=== PATIENT | male | born 1945 | race Caucasian/White ===

== ENCOUNTER 2020-12-13 08:34 | Inpatient (IN) | payer OTHER, MEDICARE ==
[~2020-12-13] VITALS: Ht 190.5 cm; Wt 109.3 kg
--- NOTE | 2020-12-13 08:34 | NUR ---
PT BIB SELF C/O FEVER, LIGHT HEADEDNESS AND BLOOD IN THE STOOL STARTED 2 DAYS AFTER COVID VACCINE. PT IS AAOX4, NOT IN RESPIRATORY DISTRESS, HOOKED TO WOODEN FENCE ERECTOR, KEPT RESTED AND COMFORTABLE. WILL CONTINUE TO MONITOR.
--- NOTE | 2020-12-13 09:08 | NUR ---
SEEN AND EXAMINED BY .
--- NOTE | 2020-12-13 09:10 | NUR ---
PT REFUSED KENYON CATH INSERTION.
--- NOTE | 2020-12-13 09:20 | NUR ---
IV LINE ESTABLISHED BLOOD DRAWN AND SENT TO LAB.
--- NOTE | 2020-12-13 09:23 | NUR ---
OIL FIELD CASER AT BEDSIDE FOR XRAY.
[2020-12-13 09:28] LABS: BASOPHILS # (AUTO) 0.1 /CMM (0.0-0.2); BASOPHILS % (AUTO) 0.7 % (0.0-2.0); EOSINOPHILS % (AUTO) 0.5 % (0.0-6.0); HEMATOCRIT 42 % (39-51); HEMOGLOBIN 14.1 g/dL (13.5-17.5); LYMPHOCYTES # (AUTO) 1.1 /CMM (0.8-4.8); LYMPHOCYTES % (AUTO) 10.8 % (20.0-44.0); MEAN CORPUSCULAR HGB CONC 34 g/dl (31.0-36.0); MEAN CORPUSCULAR VOLUME 84 fL (80-96); MONOCYTES # (AUTO) 0.6 /CMM (0.1-1.30); MONOCYTES % (AUTO) 5.8 % (2.0-12.0); NEUTROPHILS # (AUTO) 8.1 /CMM (1.8-8.9); NEUTROPHILS % (AUTO) 82.2 % (43.0-81.0); PLATELET COUNT (AUTO) 264 /CMM (150-450); RED BLOOD CELL COUNT(AUTO) 4.94 MIL/uL (4.5-6.0); WHITE BLOOD COUNT (AUTO) 9.9 K/uL (4.3-11.0)
[2020-12-13] MEDS ORDERED: IV NS 0.9% 1,000 ML BAG IV ONE (09:30)
[2020-12-13] MEDS ORDERED: IV NS 0.9% 0 ML IV ONE (09:46)
[2020-12-13] MEDS ORDERED: IOHEXOL-350 100 ML VIAL IV ONE (09:46)
[2020-12-13 09:48] LABS: ALANINE AMINOTRANSFERASE 27 U/L (12-78); ALBUMIN 3.4 g/dL (3.4-5.0); ALKALINE PHOSPHATASE 74 U/L (46-116); ASPARTATE AMINOTRANSFERASE 7 U/L (15-37); BILIRUBIN,DIRECT 0.2 mg/dL (0.0-0.2); BILIRUBIN,TOTAL 0.5 mg/dL (0.2-1.0); CARBON DIOXIDE 13 mmol/L (21-32); CHLORIDE 99 mmol/L (98-107); GLUCOSE 110 mg/dL (74-106); LIPASE 2258 U/L (73-393); POTASSIUM 5.3 mmol/L (3.5-5.1); SODIUM SERUM 139 mmol/L (136-145); TOTAL PROTEIN, SERUM 7.4 g/dL (6.4-8.2)
[2020-12-13 09:49] LABS: CREATININE 26.7 mg/dL (0.6-1.3); UREA NITROGEN, BLOOD 206 mg/dL (7-18)
--- NOTE | 2020-12-13 09:49 | NUR ---
LAB CALLED CHRISTINA SINGH 26.7 INFORMED.
--- NOTE | 2020-12-13 10:03 | NUR ---
TOTAL OF 5000ML OF URINE OUTPUT.
[2020-12-13] MEDS ORDERED: LIDOCAINE 2% JEL UROJET 10 ML MM ONE ×2 (10:19→12:00)
[2020-12-13 10:39] LABS: BILIRUBIN,URINE Negative (NEGATIVE); COLOR,URINE YELLOW (YELLOW); LEUKOCYTE ESTERASE ,URINE Negative (NEGATIVE); NITRITE, URINE Negative (NEGATIVE); PH,URINE 5.5 (5.0-8.0); PROTEIN,URINE 100 mg/dl (NEGATIVE); UGLUCOSE Negative (NEGATIVE); UROBILINOGEN,URINE 0.2 EU/dL (0.2)
[2020-12-13 11:22] LABS: BACTERIA,URINE Few /HPF (None Seen); RBC,URINE 21-50 /HPF (0-2); SQUAMOUS EPITHELIAL CELL,UR Few /HPF (None Seen)
--- NOTE | 2020-12-13 12:14 | NUR ---
LAB CALLED PT COVID RESULT NEGATIVE (-)
--- NOTE | 2020-12-13 12:29 | NUR ---
[facility] CALLED DIGITAL LIBRARIAN PAGED.
--- NOTE | 2020-12-13 13:00 | NUR ---
URINE OUTPUT 3000ML.
--- NOTE | 2020-12-13 14:34 | NUR ---
REPORT GIVEN TO ROWAN WOLF FOR WHIT.
--- NOTE | 2020-12-13 14:45 | NUR ---
RN NOTE PT TRANSFERRED ONTO FLOOR. V/S STABLE. WILL CONTINUE TO MONITOR
[2020-12-13] MEDS ORDERED: Z GUARD REMEDY 2 OZ OINT TP PRN (15:00)
[2020-12-13] MEDS ORDERED: MAGNESIUM HYDROXIDE 30 ML UDC PO PRN (15:00)
[2020-12-13 16:00] VITALS: BP 144/89
[2020-12-13 16:12] LABS: PROSTATE SPECIFIC ANTIGEN SCR 31.45 ng/mL (0.00-4.00)
--- NOTE | 2020-12-13 19:00 | NUR ---
RN CLOSING NOTE PT AWAKE IN BED. A/O X3 AND FRENCH SPEAKING. NO COMPLAINT OF PAIN OR NAUSEA. ON RA WITH NO SOB OR RESPIRATORY DISTRESS PRESENT. ON IRONWORKER FOREMAN. NO EDEMA PRESENT. SELF AMBULATORY WITH BATHROOM PRIVILEGES. SKIN IS INTACT. IV PRESENT ON L AC 18G AND FLUSHES WELL. SAFETY MEASURES IN PLACE. SIDE RAILS RAISED.BED LOWERED. CALL LIGHT WITHIN REACH. WILL CONTINUE TO MONITOR.
[2020-12-13] MEDS: IV NS 0.9% 1,000 ML IV PRN (19:26)
--- NOTE | 2020-12-13 19:40 | NUR ---
RN NOTES Received patient awake on his bed, a/ox4, ambulatory, SR on PAC on tele monitor HR-83,F/C noticed hematuria on patient's urine, denies pain, no SOB, bed in locked position, call light within reach, siderailsupx2, will continue to monitor
[2020-12-13 20:00] VITALS: BP 159/88
[2020-12-14] VITALS: BP 151/76
[2020-12-14 00:08] VITALS: BP 154/76
[2020-12-14] MEDS: IV NS 0.9% 1,000 ML IV PRN ×3 (03:28→20:07)
[2020-12-14 04:00] VITALS: BP 141/89
[2020-12-14 06:11] LABS: BASOPHILS % (AUTO) 0.6 % (0.0-2.0); EOSINOPHILS % (AUTO) 1.6 % (0.0-6.0); HEMATOCRIT 41 % (39-51); HEMOGLOBIN 13.9 g/dL (13.5-17.5); LYMPHOCYTES # (AUTO) 0.9 /CMM (0.8-4.8); LYMPHOCYTES % (AUTO) 12.7 % (20.0-44.0); MEAN CORPUSCULAR HGB CONC 34 g/dl (31.0-36.0); MEAN CORPUSCULAR VOLUME 84 fL (80-96); MONOCYTES # (AUTO) 0.7 /CMM (0.1-1.30); MONOCYTES % (AUTO) 10.1 % (2.0-12.0); NEUTROPHILS # (AUTO) 5.5 /CMM (1.8-8.9); PLATELET COUNT (AUTO) 252 /CMM (150-450); RED BLOOD CELL COUNT(AUTO) 4.83 MIL/uL (4.5-6.0); WHITE BLOOD COUNT (AUTO) 7.3 K/uL (4.3-11.0)
--- NOTE | 2020-12-14 06:27 | NUR ---
RN NOTES Awake, denies pain, no SOB, morning care rendered, call light within reach, siderailsupx2, pt. needs attended
[2020-12-14 06:32] LABS: CALCIUM, SERUM 8.6 mg/dL (8.5-10.1); CARBON DIOXIDE 20 mmol/L (21-32); CHLORIDE 110 mmol/L (98-107); GLUCOSE 111 mg/dL (74-106); MAGNESIUM 2.5 mg/dL (1.8-2.4); PHOSPHORUS 7.1 mg/dL (2.5-4.9); POTASSIUM 4.2 mmol/L (3.5-5.1); SODIUM SERUM 146 mmol/L (136-145)
[2020-12-14 06:59] LABS: CHOLESTEROL 135 mg/dL (<200); HDL CHOLESTEROL 44 mg/dL (40-60); LDL 73 mg/dL (0-99); TRIGLYCERIDES 67 mg/dL (30-150)
--- NOTE | 2020-12-14 07:15 | NUR ---
CALL CENTER MANAGER OPENING NOTE RECEIVED PATIENT IN BED. A/O X4. ON ROOM AIR, TOLERATING WELL. NO SOB NOTED. IN NO APPARENT DISTRESS. TELE READING SHOWS SR WITH PAC. DENIES ANY PAIN OR DISCOMFORT AT THIS TIME. IV ACCESS AT L AC #18 G, INTACT AND PATENT, NS CURRENTLY RUNNING AT 125 ML/HR. KENYON CATHETER IN PLACE, DRAINING YELLOW URINE. SAFETY MEASURES MAINTAINED. BED IN LOWEST POSITION, BRAKE LOCKED. SIDE RAILS UP X2. CALL LIGHT WITHIN REACH. WILL CONTINUE PLAN OF CARE. Addendum: 12/14/20 at 0807 by KOBY BURNETTE RN KENYON CATHETER IN PLACE, WITH PRESENCE OF HEMATURIA
--- NOTE | 2020-12-14 07:22 | NUR ---
RN NOTE LAB CALLED AND SPOKE TO DUARTE FOR A CRITICAL VALUE BUN/CREA 137/11.9 STILL WAITING FOR DOCTOR'S LIST Addendum: 12/14/20 at 0855 by KOBY BURNETTE RN VALERIA ARCOS NP AT [id number]
[2020-12-14 07:34] LABS: CREATININE 11.9 mg/dL (0.6-1.3); UREA NITROGEN, BLOOD 137 mg/dL (7-18)
[2020-12-14 08:00] VITALS: BP 149/79
[2020-12-14] MEDS: ONDANSETRON HCL/PF 4 MG/2 ML VIAL IVP PRN (10:56)
[2020-12-14] MEDS: HYDROCODONE/APAP 5/325MG TABLET PO PRN ×2 (14:55→19:45)
[2020-12-14 16:00] VITALS: BP 163/102
[2020-12-14] MEDS: ACETAMINOPHEN 325 MG TABLET PO PRN (16:49)
--- NOTE | 2020-12-14 18:00 | NUR ---
BABBITTER CLOSING NOTE PATIENT RESTING IN BED. A/O X4. ON ROOM AIR, SATURATING WELL AT 97%. NO SOB NOTED. NO S/S OF RESPIRATORY DISTRESS. IV ACCESS AT R FA #22 G, INTACT AND PATENT, NS CURRENTLY RUNNING AT 125 ML/HR. KENYON CATHETER IN PLACE, DRAINING BLOODY URINE. PRN MEDS GIVEN ORDERED. ALL NEEDS HAVE BEEN MET AND ATTENDED. DVT PUMP ATTACHED TO BLE. SAFETY MEASURES MAINTAINED. BED IN LOWEST POSITION, BRAKE LOCKED. SIDE RAILS UP X2. CALL LIGHT WITHIN REACH. WILL ENDORSE CONTINUITY OF CARE TO ONCOMING SHIFT.
--- NOTE | 2020-12-14 19:00 | NUR ---
RN OPENING NOTE RECEIVED PT AWAKE AT BEDSIDE, A/OX4, JAPANESE SPEAKING. PT VERBALIZES NEEDS. PT ON RA. NO SOB NOTED, NO S/S OF RESPIRATORY DISTRESS. PT IS AMBULATORY WITH BRP. PT HAS NO COMPLAIN OF PAIN AT THIS TIME. IV ACCESS IN RAC #22, INFUSING NS @ 125ML/HR. IV IS INTACT, PATENT,AND FLUSHING WELL. SAFETY MEASURED MAINTAINED . BED IN LOWEST LOCKED POSITION, HOB ELEVATED, SIDE RAILS UP. CALL LIGHT AND TABLE WITHIN REACH . WILL CONTINUE WITH PLAN OF CARE
--- NOTE | 2020-12-14 19:48 | NUR ---
RN NOTES- Received patient awake on bed, a/ox4, ambulatory, complained of back pain- [place] 5/325 mg po given as ordered,V/S stable. Dr. Grant came and saw the patient, new order was in place, not in distress, call light within reach, siderailsupx2, will continue to monitor
[2020-12-14] MEDS: FINASTERIDE (5 MG) 5 MG TABLET PO SCH (20:00)
[2020-12-14 20:02] VITALS: BP 141/94
--- NOTE | 2020-12-14 20:30 | NUR ---
RN NOTES NOTICED BLOOD IN THE KENYON INFORMED DR. CUEVAS , DR. CUEVAS WILL SEE THE PATIENT
--- NOTE | 2020-12-14 21:00 | NUR ---
RN NOTES IRRIGATE PATIENT KENYON CATHETER TO CHECK IF PATIENT KENYON HAS CLOT WITH THE HELP OF THE CHARGE NURSE0-NO CLOT FOUND
[2020-12-14] MEDS: TAMSULOSIN 0.4 MG CAP.SR.24H PO SCH (21:31)
[2020-12-15] MEDS: HYDROCODONE/APAP 5/325MG TABLET PO PRN ×4 (00:10→20:45)
--- NOTE | 2020-12-15 00:30 | NUR ---
RN NOTES COMPLAINED OF BACK PAIN- NORCO 5/325MG PO GIVEN ORDERED, V/S STABLE
[2020-12-15] MEDS: IV NS 0.9% 1,000 ML IV PRN ×2 (04:12→13:40)
--- NOTE | 2020-12-15 06:00 | NUR ---
RN CLOSING NOTE PT RESTING IN BED COMFORTABLY AT THIS TIME, EASY TO AROUSE. PT REMAINED STABLE THROUGHOUT SHIFT. ALL NEEDS, MEDICATIONS AND CARE ADMINISTERED ANTICIPATED. SAFETY PRECAUTIONS IN PLACE AND MAINTAINED AT ALL TIMES, BED IN LOWEST LOCKED POSITION, HOB ELEVATED, SIDE RAILS UP X2. CALL LIGHT AND TABLE WITHIN REACH. WILL ENDORSE TO MORNING SHIFT MET
--- NOTE | 2020-12-15 06:00 | NUR ---
RN NOTES IRRIGATE PATIENT KENYON CATHETER AGAIN- NO CLOT ,
--- NOTE | 2020-12-15 07:04 | NUR ---
MS RN OPENING NOTES RECEIVED PT AWAKE, SITTING BY THE EDGE OF THE BED AT THIS TIME. PT AOX4. ABLE TO MAKE NEEDS KNOWN. NO SOB NOTED, NO C/O OF PAIN AT THIS TIME, NO S/O ANY ACUTE DISTRESS NOTED. RESPIRATIONS EVEN AND UNLABORED, STABLE ON RA. IV ACCESS NOTED IN RFA G#22, INTACT PATENT AND FLUSHING WELL. PT NOTED WITH KENYON CATHETER, DRAINING TO GRAVITY RED URINE OUTPUT.SAFETY PRECAUTIONS IN PLACE AND MAINTAINED AT ALL TIMES. BED IN LOWEST LOCKED POSITION, SIDE RAILS UPX2, TABLE AND CALL LIGHT WITHIN REACH. WILL CONTINUE TO MONITOR
[2020-12-15 08:00] VITALS: BP 132/70
[2020-12-15] MEDS: ONDANSETRON HCL/PF 4 MG/2 ML VIAL IVP PRN ×2 (08:58→16:36)
--- NOTE | 2020-12-15 08:58 | NUR ---
PT C/O FEELING NAUSEOUS, PER PT REQUEST ZOFRAN 4MG IVP Q6H PRN FOR NAUSEA ADMINISTERED PER ORDER. WILL CONTINUE TO MONITOR
[2020-12-15] MEDS: FINASTERIDE (5 MG) 5 MG TABLET PO SCH (08:59)
--- NOTE | 2020-12-15 09:00 | NUR ---
PT C/O ACHING ABDOMEN PAIN OF 6/10. PT NOTED GRASPING SITE. VS, BP 132/70, HR 80, RR 18, T 98.1, SPO2 98% ON RA. PER PT REQUEST NORCO 5-325MG PO Q4H PRN FOR PAIN ADMINISTERED PER ORDER. WILL CONTINUE TO MONITOR
--- NOTE | 2020-12-15 11:00 | NUR ---
PT's KENYON CATHETER NOT DRAINING AT THIS TIME, BLADDER SCAN SHOWS 835ML URINE. DR CUEVAS MADE AWARE, PER DR CUEVAS, IRRIGATE AND REMOVE KENYON TO REINSERT NEW KENYON IF IRRIGATION IS UNSUCCESSFUL. ORDERS CARRIED OUT. KENYON DID NOT DRAIN AFTER IRRIGATION. KENYON REMOVED AND NEW KENYON INSERTED. WILL CONTINUE TO MONITOR
[2020-12-15 12:32] LABS: BASOPHILS % (AUTO) 0.4 % (0.0-2.0); EOSINOPHILS % (AUTO) 0.5 % (0.0-6.0); HEMATOCRIT 39 % (39-51); HEMOGLOBIN 13.2 g/dL (13.5-17.5); LYMPHOCYTES # (AUTO) 1.3 /CMM (0.8-4.8); LYMPHOCYTES % (AUTO) 13.1 % (20.0-44.0); MEAN CORPUSCULAR HGB CONC 34 g/dl (31.0-36.0); MEAN CORPUSCULAR VOLUME 85 fL (80-96); MONOCYTES % (AUTO) 9.6 % (2.0-12.0); NEUTROPHILS # (AUTO) 7.7 /CMM (1.8-8.9); NEUTROPHILS % (AUTO) 76.4 % (43.0-81.0); PLATELET COUNT (AUTO) 243 /CMM (150-450); RED BLOOD CELL COUNT(AUTO) 4.61 MIL/uL (4.5-6.0)
[2020-12-15 12:58] LABS: CALCIUM, SERUM 8.7 mg/dL (8.5-10.1); CARBON DIOXIDE 15 mmol/L (21-32); CHLORIDE 106 mmol/L (98-107); GLUCOSE 120 mg/dL (74-106); MAGNESIUM 2.3 mg/dL (1.8-2.4); POTASSIUM 4.6 mmol/L (3.5-5.1); SODIUM SERUM 139 mmol/L (136-145)
[2020-12-15 12:59] LABS: CREATININE 9.3 mg/dL (0.6-1.3); UREA NITROGEN, BLOOD 124 mg/dL (7-18)
[2020-12-15 16:00] VITALS: BP 159/78
--- NOTE | 2020-12-15 16:48 | NUR ---
PT C/O NAUSEA, PER PT REQUEST ZOFRAN 4MG IVP Q6H PRN FOR NAUSEA ADMINISTERED PER ORDER. WILL CONTINUE TO MONITOR
--- NOTE | 2020-12-15 16:49 | NUR ---
PT C/O ACHING ABDOMEN PAIN OF 7/10. PT NOTED WITH FACIAL GRIMACE. VS WNL. PER PT REQUEST NORCO 5-325MG PO Q4H PRN FOR PAIN ADMINISTERED PER ORDER. WILL CONTINUE TO MONITOR
[2020-12-15] MEDS ORDERED: ENSURE ENLIVE CHOC 237 ML CAN PO ONE (17:00)
--- NOTE | 2020-12-15 18:20 | NUR ---
MS RN CLOSING NOTE PT AWAKE IN BED AT THIS TIME. PT REMAINED STABLE THROUGHOUT SHIFT, ALL NEEDS, MEDICATIONS, AND CARE ADMINISTERED ANTICIPATED PER ORDER. PAIN CONTROL AND NAUSEA MANAGEMENT ADMINISTERED PER ORDER. PT KEPT CLEAN AND DRY. KENYON CATHETER CARE PROVIDED. SAFETY PRECAUTIONS IN PLACE AND MAINTAINED AT ALL TIMES. BED IN LOWEST LOCKED POSITION, HOB ELEVATED, SIDE RAILS UP X2. CALL LIGHT AND TABLE WITHIN REACH. WILL ENDORSE TO LADLE LINER NURSE FOR WHIT
[2020-12-15] MEDS ORDERED: NACL IV SCH (18:30)
[2020-12-15] MEDS ORDERED: SODIUM BICARBONATE IV SCH (18:30)
[2020-12-15] MEDS ORDERED: D5 IV SCH (18:30)
--- NOTE | 2020-12-15 18:50 | NUR ---
PT's KENYON CATHETER NOT DRAINING AT THIS TIME, DR CUEVAS MADE AWARE, PER DR CUEVAS, IRRIGATE AND REMOVE KENYON AND REINSERT NEW KENYON IF IRRIGATION IS UNSUCCESSFUL. THIRD KENYON CATHETER INSERTED BY MARK, CHARGE NURSE PER DR CUEVAS'S ORDERS. WILL CONTINUE TO MONITOR
[2020-12-15] MEDS: SODIUM BICARBONATE IV SCH (19:05)
[2020-12-15] MEDS: D5 IV SCH (19:05)
[2020-12-15] MEDS: NACL IV SCH (19:05)
[2020-12-15 20:00] VITALS: BP 157/85
--- NOTE | 2020-12-15 21:10 | NUR ---
DR CUEVAS CAME AND INSERTED A 3-WAY CATHETER, AND IRRIGATED 2,300 ML URINE. NOW ON CBI.
[2020-12-15] MEDS: TAMSULOSIN 0.4 MG CAP.SR.24H PO SCH (22:03)
[2020-12-16] MEDS: SODIUM BICARBONATE IV SCH ×3 (03:55→23:06)
[2020-12-16] MEDS: D5 IV SCH ×3 (03:55→23:06)
[2020-12-16] MEDS: NACL IV SCH ×3 (03:55→23:06)
--- NOTE | 2020-12-16 06:04 | NUR ---
MS RN CLOSING NOTES: PATIENT ASLEEP IN BED. NO S/S OF DISTRESS NOTED. CALL LIGHT WITHIN REACH. BED IN LOWEST AND LOCKED POSITION. RESTED THROUGHOUT THE NIGHT. WITH CBI RUNNING, NO HEMATURIA NOTED, WITH CLEAR PALE URINE OUTPUT. WITH SMALL AMOUNT OF BLEEDING FROM THE PENIS NOTED.
[2020-12-16 06:21] LABS: BASOPHILS % (AUTO) 0.6 % (0.0-2.0); EOSINOPHILS % (AUTO) 1.9 % (0.0-6.0); HEMATOCRIT 39 % (39-51); HEMOGLOBIN 13.3 g/dL (13.5-17.5); LYMPHOCYTES # (AUTO) 1.4 /CMM (0.8-4.8); LYMPHOCYTES % (AUTO) 16.3 % (20.0-44.0); MEAN CORPUSCULAR HGB CONC 34 g/dl (31.0-36.0); MEAN CORPUSCULAR VOLUME 85 fL (80-96); MONOCYTES # (AUTO) 0.9 /CMM (0.1-1.30); MONOCYTES % (AUTO) 9.6 % (2.0-12.0); NEUTROPHILS # (AUTO) 6.4 /CMM (1.8-8.9); NEUTROPHILS % (AUTO) 71.6 % (43.0-81.0); PLATELET COUNT (AUTO) 254 /CMM (150-450); RED BLOOD CELL COUNT(AUTO) 4.64 MIL/uL (4.5-6.0); WHITE BLOOD COUNT (AUTO) 8.9 K/uL (4.3-11.0)
[2020-12-16 06:29] LABS: CARBON DIOXIDE 19 mmol/L (21-32); CHLORIDE 110 mmol/L (98-107); GLUCOSE 114 mg/dL (74-106); MAGNESIUM 2.1 mg/dL (1.8-2.4); PHOSPHORUS 5.5 mg/dL (2.5-4.9); POTASSIUM 4.3 mmol/L (3.5-5.1); SODIUM SERUM 145 mmol/L (136-145)
[2020-12-16 07:04] LABS: UREA NITROGEN, BLOOD 105 mg/dL (7-18)
--- NOTE | 2020-12-16 07:54 | NUR ---
MS RN OPENING NOTES RECEIVED PATIENT SITTING AT THE EDGE OF THE BED, AWAKE. A/O X4. ON ROOM AIR - TOLERATING WELL. NO SOB NOTED. IV ACCESS TO RIGHT HAND #22 - INTACT AND PATENT - RUNNING NS/SODIUM BICARB 75 MEQ @ 125ML/HR. KENYON CATHETER IN PLACE AND PATENT - DRAINING TO GRAVITY. SAFETY PRECAUTIONS IN PLACE. WILL CONTINUE TO MONITOR.
[2020-12-16 08:14] VITALS: BP 146/90
[2020-12-16] MEDS: FINASTERIDE (5 MG) 5 MG TABLET PO SCH (08:51)
[2020-12-16] MEDS: HYDROCODONE/APAP 5/325MG TABLET PO PRN ×2 (08:51→21:18)
[2020-12-16] MEDS: ACETAMINOPHEN 325 MG TABLET PO PRN (10:09)
[2020-12-16] MEDS: MORPHINE SULFATE INJ 2 MG/ML DISP.SYRIN IV PRN ×2 (11:17→17:26)
[2020-12-16 16:00] VITALS: BP 140/83
[2020-12-16] MEDS: CYCLOBENZAPRINE 10 MG TABLET PO SCH (18:27)
--- NOTE | 2020-12-16 18:40 | NUR ---
MS RN CLOSING NOTES PATIENT CURRENTLY SITTING AT THE EDGE OF THE BED, AWAKE. A/O X4. ON ROOM AIR - TOLERATING WELL. NO SOB NOTED. IV ACCESS TO RIGHT HAND #22 - INTACT AND PATENT - RUNNING NS/SODIUM BICARB 75 MEQ @ 125ML/HR. KENYON CATHETER IN PLACE AND PATENT - DRAINING PINK TINGED URINE WITH A FEW SMALL CLOTS TO GRAVITY. SAFETY PRECAUTIONS IN PLACE. WILL ENDORSE TO SPOOL CLEANER HAND NURSE FOR WHIT.
[2020-12-16 20:00] VITALS: BP 158/97
--- NOTE | 2020-12-16 20:00 | NUR ---
MS RN OPENING NOTES: RECEIVED PATIENT IN BED, AWAKE, A/O X4. NO S/S OF DISTRESS NOTED. CALL LIGHT WITHIN REACH. BED IN LOWEST AND LOCKED POSITION. WITH [address] CATHETER INTACT ON CBI GOING, WITH CLEAR PALE YELLOW OUTPUT. WILL CONTINUE TO MONITOR THE CBI.
[2020-12-16] MEDS: TAMSULOSIN 0.4 MG CAP.SR.24H PO SCH (21:19)
--- NOTE | 2020-12-17 07:38 | NUR ---
MS RN OPENING NOTES RECEIVED PATIENT LYING IN BED, RESTING. EASY TO AROUSE. A/O X4. ON ROOM AIR - TOLERATING WELL WITH NO SOB NOTED. IV ACCESS TO RIGHT HAND #22 - INTACT AND PATENT - RUNNING NS/SODIUM BICARB 75 MEQ @ 125ML/HR. KENYON CATHETER IN PLACE AND PATENT - DRAINING CLEAR AND PALE URINE TO GRAVITY. ON CONTINUOUS BLADDER IRRIGATION. SAFETY PRECAUTIONS IN PLACE. CALL LIGHT WITHIN REACH. WILL CONTINUE TO MONITOR.
[2020-12-17] MEDS: CYCLOBENZAPRINE 10 MG TABLET PO SCH ×3 (08:08→17:52)
[2020-12-17] MEDS: FINASTERIDE (5 MG) 5 MG TABLET PO SCH (08:08)
[2020-12-17 09:20] LABS: BASOPHILS # (AUTO) 0.1 /CMM (0.0-0.2); BASOPHILS % (AUTO) 0.6 % (0.0-2.0); EOSINOPHILS % (AUTO) 0.9 % (0.0-6.0); HEMATOCRIT 39 % (39-51); HEMOGLOBIN 13.1 g/dL (13.5-17.5); LYMPHOCYTES # (AUTO) 0.9 /CMM (0.8-4.8); LYMPHOCYTES % (AUTO) 6.7 % (20.0-44.0); MEAN CORPUSCULAR HGB CONC 34 g/dl (31.0-36.0); MEAN CORPUSCULAR VOLUME 85 fL (80-96); MONOCYTES # (AUTO) 0.8 /CMM (0.1-1.30); MONOCYTES % (AUTO) 5.5 % (2.0-12.0); NEUTROPHILS # (AUTO) 11.9 /CMM (1.8-8.9); NEUTROPHILS % (AUTO) 86.3 % (43.0-81.0); PLATELET COUNT (AUTO) 219 /CMM (150-450); RED BLOOD CELL COUNT(AUTO) 4.56 MIL/uL (4.5-6.0); WHITE BLOOD COUNT (AUTO) 13.8 K/uL (4.3-11.0)
[2020-12-17] MEDS: HYDROCODONE/APAP 5/325MG TABLET PO PRN ×2 (10:10→17:51)
[2020-12-17 10:28] LABS: CALCIUM, SERUM 8.5 mg/dL (8.5-10.1); CARBON DIOXIDE 25 mmol/L (21-32); CHLORIDE 103 mmol/L (98-107); GLUCOSE 131 mg/dL (74-106); MAGNESIUM 1.9 mg/dL (1.8-2.4); PHOSPHORUS 5.8 mg/dL (2.5-4.9); POTASSIUM 4.5 mmol/L (3.5-5.1); SODIUM SERUM 140 mmol/L (136-145)
[2020-12-17 10:31] LABS: UREA NITROGEN, BLOOD 104 mg/dL (7-18)
[2020-12-17 10:32] LABS: CREATININE 9.3 mg/dL (0.6-1.3)
[2020-12-17] MEDS: NACL IV SCH ×2 (11:11→20:14)
[2020-12-17] MEDS: D5 IV SCH ×2 (11:11→20:14)
[2020-12-17] MEDS: SODIUM BICARBONATE IV SCH ×2 (11:11→20:14)
[2020-12-17] MEDS: MORPHINE SULFATE INJ 2 MG/ML DISP.SYRIN IV PRN ×3 (12:33→20:43)
--- NOTE | 2020-12-17 16:30 | NUR ---
PATIENT HAS FEVER OF 100.8 - FAUSTINA MADE AWARE. ORDERED STAT BLOOD CX AND UA.
[2020-12-17 17:03] LABS: IRON, SERUM 14 ug/dl (50-175); TOTAL IRON BINDING CAPACITY 176 ug/dl (250-450)
--- NOTE | 2020-12-17 17:15 | NUR ---
MS RN NOTE FOUND PATIENT WITH BLOOD SPLATTERED ALL OVER THE FLOOR AND IV PUMP. PATIENT'S GOWN SATURATED IN BLOOD WELL - OFFERED A FRESH CLEAN GOWN AND PATIENT REFUSED. PATIENT STATED HE DIDN'T KNOW HOW IT HAPPENED BUT HIS IV WAS PULLED OUT. PATIENT REFUSED TO HAVE A NEW ONE PUT IN AT THIS TIME BUT AGREED TO HAVE ONE PUT IN LATER BECAUSE HE KNOWS THAT HE NEEDS IV FLUIDS. CHARGE NURSE AWARE. AWARE.
[2020-12-17 17:38] LABS: FERRITIN 407 ng/mL (8-388)
--- NOTE | 2020-12-17 18:55 | NUR ---
MS RN CLOSING NOTES PATIENT CURRENTLY SITTING AT THE EDGE OF THE BED, AWAKE. A/O X4. ON ROOM AIR - TOLERATING WELL. NO SOB NOTED. NO IV ACCESS - PATIENT ACCIDENTLY PULLED IT OUT. DID NOT WANT ANOTHER IV RIGHT AWAY BUT AGREED TO ONE LATER. PATIENT AWARE AND KNOWS THAT HE NEEDS FLUIDS AND MEDS. LAB UNABLE TO GET FULL BLOOD CULTURE DRAWS - PATIENT IS A HARD STICK. KENYON CATHETER IN PLACE AND PATENT - DRAINING PINK TINGED URINE TO GRAVITY. STILL ON CONTINUOUS BLADDER IRRIGATION. SAFETY PRECAUTIONS IN PLACE. WILL ENDORSE TO HARVESTING MANAGER NURSE FOR WHIT.
--- NOTE | 2020-12-17 19:30 | NUR ---
MS RN OPENING NOTES RECEIVED PATIENT IN BED, AWAKE, A&O X 4, IN NO ACUTE DISTRESS NOTED. VS WITHIN NORMAL LIMITS. ON ROOM AIR TOLERATING WELL. NO SOB NOTED. NO IV ACCESS AT THIS TIME. NOTED WITH [address] WAY KENYON CATHETER, ON CONTINUOUS BLADDER IRRIGATION, DARK YELLOW OUTPUT NOTED. NO COMPLAINTS OF PAIN AT THIS TIME. SAFETY PRECAUTIONS OBSERVED: BED ON LOWEST LOCKED POSITION, KEPT SIDE RAILS UP X 2. KEPT CALL LIGHT WITHIN EASY REACH. INSTRUCTED TO USE CALL LIGHT WHEN ASSISTANCE IS NEEDED. PATIENT VERBALIZED UNDERSTANDING. WILL CONTINUE TO MONITOR PATIENT'S CURRENT STATUS.
[2020-12-17 20:00] VITALS: BP 116/67
--- NOTE | 2020-12-17 20:10 | NUR ---
MS RN NOTES NEW SALINE LOCK PLACE ON LEFT ARM #20,IVF D5 1/2NS WITH SODIUM BICARBONATE RE STARTED AT 125ML/HR RATE INFUSING VIA IV PUMP.
--- NOTE | 2020-12-17 20:43 | NUR ---
MS RN NOTES PAIN MANAGEMENT C/O KID LOWER ABDOMINAL PAIN 8/10ON PAIN SCALE,MEDICATED WITH MORPHINE 2MG IV ORDERED AND PER PATIENT REQUEST.
[2020-12-17] MEDS: TAMSULOSIN 0.4 MG CAP.SR.24H PO SCH (21:33)
[2020-12-18] MEDS: HYDROCODONE/APAP 5/325MG TABLET PO PRN (02:02)
--- NOTE | 2020-12-18 02:02 | NUR ---
PAIN MANAGEMENT PATIENT C/O OF LOW BACK PAIN WITH PAIN SCALE OF 7/10. DUE NORCO 5/325 GIVEN ORDERED. WILL CONTINUE TO MONITOR PAIN STATUS.
[2020-12-18 02:58] LABS: BILIRUBIN,URINE NEGATIVE (NEGATIVE); COLOR,URINE RED (YELLOW); LEUKOCYTE ESTERASE ,URINE MODERATE (NEGATIVE); NITRITE, URINE NEGATIVE (NEGATIVE); PH,URINE 6.5 (5.0-8.0); PROTEIN,URINE 100 mg/dl (NEGATIVE); UGLUCOSE NEGATIVE (NEGATIVE); UROBILINOGEN,URINE 0.2 EU/dL (0.2)
[2020-12-18] MEDS: D5 IV SCH ×3 (04:15→20:19)
[2020-12-18] MEDS: SODIUM BICARBONATE IV SCH ×3 (04:15→20:19)
[2020-12-18] MEDS: NACL IV SCH ×3 (04:15→20:19)
[2020-12-18 04:16] LABS: BACTERIA,URINE Many /HPF (None Seen); RBC,URINE 81-100 /HPF (0-2); SQUAMOUS EPITHELIAL CELL,UR Few /HPF (None Seen); WBC,URINE 81-100 /HPF (0-3)
--- NOTE | 2020-12-18 06:35 | NUR ---
MS RN CLOSING NOTES PATIENT IN BED, AWAKE, A&O X 4, IN NO ACUTE DISTRESS NOTED. VS WITHIN NORMAL LIMITS. ON ROOM AIR TOLERATING WELL. NO SOB NOTED. ONGOING IV OF D5 1/2 NS 1L + SODIUM BICARB 75 MEQS INFUSING WELL ON LEFT HAND G#20, NO REDNESS, NO S/SX OF INFILTRATION NOTED. NOTED WITH [address] WAY KENYON CATHETER, ON CONTINUOUS BLADDER IRRIGATION, CLEAR YELLOW OUTPUT NOTED. NO COMPLAINTS OF PAIN AT THIS TIME. SAFETY PRECAUTIONS OBSERVED AND MAINTAINED DURING THE SHIFT: BED ON LOWEST LOCKED POSITION, KEPT SIDE RAILS UP X 2. KEPT CALL LIGHT WITHIN EASY REACH. ALL DUE MEDS GIVEN ORDERED. ENDORSED TO MORNING SHIFT NURSE FOR CONTINUITY OF CARE.
[2020-12-18 07:09] LABS: BASOPHILS % (AUTO) 0.2 % (0.0-2.0); EOSINOPHILS % (AUTO) 0.1 % (0.0-6.0); HEMATOCRIT 41 % (39-51); HEMOGLOBIN 13.1 g/dL (13.5-17.5); LYMPHOCYTES # (AUTO) 0.7 /CMM (0.8-4.8); MEAN CORPUSCULAR HGB CONC 32 g/dl (31.0-36.0); MEAN CORPUSCULAR VOLUME 89 fL (80-96); MONOCYTES # (AUTO) 0.8 /CMM (0.1-1.30); MONOCYTES % (AUTO) 4.9 % (2.0-12.0); NEUTROPHILS # (AUTO) 14.9 /CMM (1.8-8.9); NEUTROPHILS % (AUTO) 90.8 % (43.0-81.0); PLATELET COUNT (AUTO) 177 /CMM (150-450); WHITE BLOOD COUNT (AUTO) 16.4 K/uL (4.3-11.0)
--- NOTE | 2020-12-18 07:25 | NUR ---
MS RN OPENING NOTES RECEIVED PATIENT AWAKE IN BED IN NO ACUTE SIGN SOF DISTRESS. A/O X 4, ABLE TO MAKE NEEDS KNOWN, NO C/O PAIN OR DISCOMFORTS AT THIS TIME. ON ROOM AIR, TOLERATING WELL. BREATHING EVEN AND UNLABORED. IV ACCESS ON LEFT HAND G#20 INTACT AND PATENT, IVF INFUSING ORDERED, NO S/S OF INFILTRATIONS AT SITE NOTE4D. THREE WAY KENYON CATHETER WITH CONTINUOUS BLADDER IRRIGATION IN PLACE, DARK YELLOWISH URINE OUTPUT NOTED. SAFETY PRECAUTIONS IN PLACE: BED ON LOWEST LOCKED POSITION, SIDE RAILS UP X 2. KEPT CALL LIGHT WITHIN EASY REACH. INSTRUCTED TO USE CALL LIGHT WHEN ASSISTANCE IS NEEDED. WILL CONTINUE TO MONITOR PATIENT.
[2020-12-18 07:32] LABS: CALCIUM, SERUM 8.6 mg/dL (8.5-10.1); CARBON DIOXIDE 21 mmol/L (21-32); CHLORIDE 97 mmol/L (98-107); GLUCOSE 106 mg/dL (74-106); MAGNESIUM 1.8 mg/dL (1.8-2.4); PHOSPHORUS 6.3 mg/dL (2.5-4.9); POTASSIUM 4.9 mmol/L (3.5-5.1); SODIUM SERUM 133 mmol/L (136-145)
[2020-12-18 07:35] LABS: CREATININE 11.3 mg/dL (0.6-1.3); UREA NITROGEN, BLOOD 104 mg/dL (7-18)
[2020-12-18 08:00] VITALS: BP 115/85
[2020-12-18 08:07] LABS: IMMUNOGLOBULIN A, SERUM 81 mg/dL (61-437); IMMUNOGLOBULIN G, SERUM 929 mg/dL (603-1613); IMMUNOGLOBULIN M, SERUM 93 mg/dL (15-143)
[2020-12-18] MEDS: CYCLOBENZAPRINE 10 MG TABLET PO SCH ×3 (08:30→16:25)
[2020-12-18] MEDS: FINASTERIDE (5 MG) 5 MG TABLET PO SCH (08:30)
--- NOTE | 2020-12-18 09:45 | NUR ---
RN NOTES RECEIVED CALL FROM LAB THAT PT'S PRELIMINARY RESULTS OF BLOOD CULTURE WAS GRAM POSITIVE RODS SEEN ON GRAM STAIN. CARMINE CARRILLO ON UNIT AND MADE AWARE. SHE WENT TO SEE PT AND DISCUSSED PT'S CURRENT CONDITION AND PLAN OF CARE. SHE ALSO ORDERED TO DC CONTINUOUS BLADDER IRRIGATION DUE TO PT URINE IS CLEAR NOW WITH NO HEMATURIA NOTED AND ONCE PT HAS HEMATURIA,TO RESUME BLADDER IRRIGATION AGAIN. WILL CONTINUE TO MONITOR.
[2020-12-18] MEDS: CEFTRIAXONE 1 G in IV D5W 50 ML IV SCH (09:58)
[2020-12-18 13:07] LABS: *SPE A/G RATIO 0.9 (0.7-1.7); *SPE ALPHA-1-GLOBULIN 0.5 g/dL (0.0-0.4); *SPE BETA GLOBULIN 0.7 g/dL (0.7-1.3); *SPE GLOBULIN, TOTAL 3.3 g/dL (2.2-3.9); *SPE M-SPIKE Not Observed g/dL (Not Observed)
[2020-12-18 16:00] VITALS: BP 136/87
[2020-12-18] MEDS: MORPHINE SULFATE INJ 2 MG/ML DISP.SYRIN IV PRN (16:42)
--- NOTE | 2020-12-18 16:46 | NUR ---
RN NOTES PT C/O OF ACHING AND SHARP PAIN ON LEFT LOWER BACK, 9/10 SCALE. PRN MORPHINE 2MG/1ML IVP ADMINISTERED @ 1642. WILL CONTINUE TO MONITOR AND REASSESS PT.
[2020-12-18] MEDS: ACETAMINOPHEN 325 MG TABLET PO PRN (17:01)
--- NOTE | 2020-12-18 18:31 | NUR ---
MS RN CLOSING NOTES PATIENT AWAKE AND RESTING IN BED. A/O X 4, ABLE TO MAKE NEEDS KNOWN. TOLERATING ROOM AIR WITH NO ACUTE RESPIRATORY DISTRESS NOTED DURING SHIFT. IV ACCESS ON LEFT HAND G#20 INTACT AND PATENT, IVF OF SODIUM BICARB 75 SABA + IN D5W 1/2 NS AT 125 ML/HR INFUSING WELL, NO S/S OF INFILTRATION AT SITE NOTED. THREE WAY KENYON CATHETER IN PLACE WITH CLEAR ILIR URINE OUTPUT NOTED, KENYON CARE DONE. ALL NEEDS AND CARE ATTENDED WELL. SAFETY PRECAUTIONS KEPT IN PLACE: BED IN LOWEST LOCKED POSITION, SIDE RAILS UP X 2. KEPT CALL LIGHT WITHIN EASY REACH. INSTRUCTED TO USE CALL LIGHT WHEN ASSISTANCE IS NEEDED. WILL ENDORSE WHIT TO CONTROLLER OPERATIONS AND HR MANAGER NURSE.
--- NOTE | 2020-12-18 19:45 | NUR ---
MS RN NOTES RECEIVED ON BED A/O X4,SLEEPING THIS TIME.WITH CBI,CLAMPED AT THE MOMENT WITH ORDER DUE TO CLEAR OUTPUT, WILL RESUME IF BLOOD IN THE URINE COMES UP AGAIN WITH ORDER.AMBULATES TO THE TOILET WITH STEADY GAIT.WITH IVF D5 1/2 NS PLUS 75ML SODIUM BICARBONATE AT 125ML/HR RATE INFUSING VIA IV PUMP ON LEFT HAND.CALL LIGHT IN REACH,NEEDS ANTICIPATED.
[2020-12-18 20:00] VITALS: BP 134/64
[2020-12-18] MEDS: TAMSULOSIN 0.4 MG CAP.SR.24H PO SCH (22:02)
--- NOTE | 2020-12-19 02:12 | NUR ---
RN NOTES PATIENT'S IV NOTED WITH S/SX INFILTRATION, REDNESS NOTED. REMOVED IVF, OFFERED TO REINSERT NEW IV ACCESS, PATIENT DECLINED AT THIS TIME AND SAID HE WATS TO DO IT LATER IN THE MORNING. RISK AND BENEFITS EXPLAINED 3X, STILL REFUSED.
[2020-12-19] MEDS: ONDANSETRON HCL/PF 4 MG/2 ML VIAL IVP PRN (02:49)
[2020-12-19] MEDS: SODIUM BICARBONATE IV SCH ×3 (03:00→20:22)
[2020-12-19] MEDS: D5 IV SCH ×3 (03:00→20:22)
[2020-12-19] MEDS: NACL IV SCH ×3 (03:00→20:22)
--- NOTE | 2020-12-19 03:03 | NUR ---
RN NOTES REINSERTED AN IV ACCESS G#20 ON PATIENT'S RIGHT WRIST, PATENT AND FLUSHES WELL.
--- NOTE | 2020-12-19 06:25 | NUR ---
MS RN CLOSING NOTES PATIENT ON BED, ASLEEP, EASILY AWAKEN BY VERBAL AND TACTILE STIMULI. ON RA TOLERATING WELL, NO SOB NOTED. WITH CBI,CLAMPED AT THE MOMENT WITH ORDER DUE TO CLEAR OUTPUT. WITH IVF OF D5 1/2 NS PLUS 75ML SODIUM BICARBONATE AT 125ML/HR RATE INFUSING VIA IV PUMP ON PATIENT RIGHT WRIST. NO COMPLAINTS OF PAIN AT THIS TIME. SAFETY PRECAUTIONS OBSERVED AND MAINTAINED AT ALL TIMES: BED ON LOWEST LOCKED POSITION, SIDE RAILS UP X 2,KEPT CALL LIGHT WITHIN EASY REACH. ALL DUE MEDS GIVE ORDERED. ENDORSED TO MORNING SHIFT NURSE FOR CONTINUITY OF CARE.
[2020-12-19 06:32] LABS: BASOPHILS % (AUTO) 0.1 % (0.0-2.0); EOSINOPHILS % (AUTO) 0.2 % (0.0-6.0); HEMATOCRIT 33 % (39-51); HEMOGLOBIN 11.2 g/dL (13.5-17.5); LYMPHOCYTES # (AUTO) 0.4 /CMM (0.8-4.8); LYMPHOCYTES % (AUTO) 4.8 % (20.0-44.0); MEAN CORPUSCULAR HGB CONC 34 g/dl (31.0-36.0); MEAN CORPUSCULAR VOLUME 85 fL (80-96); MONOCYTES # (AUTO) 0.8 /CMM (0.1-1.30); MONOCYTES % (AUTO) 8.4 % (2.0-12.0); NEUTROPHILS # (AUTO) 8.1 /CMM (1.8-8.9); NEUTROPHILS % (AUTO) 86.5 % (43.0-81.0); PLATELET COUNT (AUTO) 154 /CMM (150-450); RED BLOOD CELL COUNT(AUTO) 3.86 MIL/uL (4.5-6.0); WHITE BLOOD COUNT (AUTO) 9.4 K/uL (4.3-11.0)
[2020-12-19 07:14] LABS: CARBON DIOXIDE 24 mmol/L (21-32); CHLORIDE 97 mmol/L (98-107); GLUCOSE 126 mg/dL (74-106); MAGNESIUM 1.7 mg/dL (1.8-2.4); PHOSPHORUS 7.3 mg/dL (2.5-4.9); POTASSIUM 4.8 mmol/L (3.5-5.1); SODIUM SERUM 134 mmol/L (136-145)
[2020-12-19 07:16] LABS: CREATININE 13.5 mg/dL (0.6-1.3); UREA NITROGEN, BLOOD 131 mg/dL (7-18)
--- NOTE | 2020-12-19 07:20 | NUR ---
RN NOTES PATIENT IN BED RESTING, EYES CLOSED, EASILY AWAKENS. BREATHING EVEN AND UNLABORED, TOLERATING ROOM AIR. WITH IVF OF D5 1/2 NS PLUS 75ML SODIUM BICARBONATE AT 125ML/HR RATE INFUSING WELL. KENYON CATH INTACT AND PATENT, DRAINING YELLOW-COLORED URINE. SAFETY PRECAUTIONS IN PLACE. WILL CONTINUE TO MONITOR.
[2020-12-19 08:15] VITALS: BP 134/62
[2020-12-19] MEDS: CYCLOBENZAPRINE 10 MG TABLET PO SCH ×3 (08:28→16:20)
[2020-12-19] MEDS: FINASTERIDE (5 MG) 5 MG TABLET PO SCH (08:28)
[2020-12-19] MEDS: FERROUS SULFATE (325 MG) 325 MG/TAB TABLET PO SCH (08:28)
[2020-12-19] MEDS: CEFTRIAXONE 1 G in IV D5W 50 ML IV SCH (09:19)
--- NOTE | 2020-12-19 11:00 | NUR ---
RN NOTES INFORMED DR. CUEVAS ABOUT PATIENT'S REQUEST FOR KENYON CATH TO BE D/C'D. PER MD, CATHETER NEEDS TO STAY IN PLACE UNTIL SEEN BY PATIENT'S UROLOGIST UPON DISCHARGE. PATIENT MADE AWARE AND VERBALIZES UNDERSTANDING AT THIS TIME. WILL CONTINUE TO MONITOR.
--- NOTE | 2020-12-19 13:18 | NUR ---
RN NOTES PATIENT WAS SEEN BY CYNDI CARRILLO, CARMINE, AND MADE AWARE OF PLAN OF CARE; MADE AWARE OF MAGNESIUM RESULT. IT'S BORDERLINE AT THIS TIME AND PATIENT'S BUN/CREA ARE ELEVATED SO WOULD HOLD OFF ON IT FOR NOW. SEEN BY DR. NY WELL, FOR [facility]LAYNE CATH PLACEMENT ON TUESDAY FOR POSSIBLE DIALYSIS. PATIENT AWARE AND VERBALIZED UNDERSTANDING.
--- NOTE | 2020-12-19 16:03 | NUR ---
RN NOTES CONSENT FORM SIGNED BY PATIENT FOR ACUTE HEMODIALYSIS EXPLAINED BY DR. NY TO PATIENT. CONSENT FORM PLACED IN PATIENT'S CHART.
[2020-12-19 16:06] VITALS: BP 127/62
[2020-12-19] MEDS ORDERED: VANCOMYCIN 1 GM in IV D5W 250ml IV ONE (17:00)
--- NOTE | 2020-12-19 19:15 | NUR ---
RN NOTES PATIENT SEEN AMBULATING TO BATHROOM. IVF INFUSING WELL AT THIS TIME. ENDORSED WHIT TO RETURNED GOODS RECEIVING CLERK RN.
--- NOTE | 2020-12-19 19:30 | NUR ---
MS RN OPENING PATIENT A/OX4. AMBULATING. NO S/S OF DISTRESS. NO C/O PAIN. KENYON IN PLACE. BLE PITTING EDEMA 2+ NOTED. BUE EDEMA NON-PITTING NOTED. IV D5 1/2 NACL 1,000 ML BAG @ 125 ML/HR RUNNING. SAFETY IN PLACE: BED IN LOWEST, LOCKED POSITION, CALL LIGHT WITHIN REACH. WILL CONTINUE TO MONITOR.
[2020-12-19] MEDS: ZOLPIDEM TARTRATE 5 MG TABLET PO PRN (20:22)
[2020-12-19] MEDS: TAMSULOSIN 0.4 MG CAP.SR.24H PO SCH (22:08)
[2020-12-19 22:09] VITALS: BP 11/78
[2020-12-20] MEDS: D5 IV SCH ×3 (02:34→19:20)
[2020-12-20] MEDS: SODIUM BICARBONATE IV SCH ×3 (02:34→19:20)
[2020-12-20] MEDS: NACL IV SCH ×3 (02:34→19:20)
[2020-12-20] MEDS ORDERED: VANCOMYCIN POST DIALYSIS 500MG IV PRN (05:00)
[2020-12-20 06:51] LABS: BASOPHILS % (AUTO) 0.3 % (0.0-2.0); EOSINOPHILS % (AUTO) 2.9 % (0.0-6.0); HEMATOCRIT 31 % (39-51); HEMOGLOBIN 10.6 g/dL (13.5-17.5); LYMPHOCYTES # (AUTO) 0.6 /CMM (0.8-4.8); LYMPHOCYTES % (AUTO) 6.4 % (20.0-44.0); MEAN CORPUSCULAR HGB CONC 34 g/dl (31.0-36.0); MEAN CORPUSCULAR VOLUME 85 fL (80-96); MONOCYTES % (AUTO) 10.8 % (2.0-12.0); NEUTROPHILS # (AUTO) 7.2 /CMM (1.8-8.9); NEUTROPHILS % (AUTO) 79.6 % (43.0-81.0); PLATELET COUNT (AUTO) 145 /CMM (150-450); RED BLOOD CELL COUNT(AUTO) 3.65 MIL/uL (4.5-6.0); WHITE BLOOD COUNT (AUTO) 9.1 K/uL (4.3-11.0)
[2020-12-20 07:21] LABS: CALCIUM, SERUM 8.3 mg/dL (8.5-10.1); CARBON DIOXIDE 19 mmol/L (21-32); CHLORIDE 95 mmol/L (98-107); GLUCOSE 103 mg/dL (74-106); MAGNESIUM 1.8 mg/dL (1.8-2.4); POTASSIUM 4.8 mmol/L (3.5-5.1); SODIUM SERUM 132 mmol/L (136-145)
[2020-12-20 07:26] LABS: CREATININE 15.2 mg/dL (0.6-1.3); PHOSPHORUS 8.1 mg/dL (2.5-4.9); UREA NITROGEN, BLOOD 139 mg/dL (7-18)
--- NOTE | 2020-12-20 07:46 | NUR ---
ms rn notes no significant change. endorsed care to morning rn.
--- NOTE | 2020-12-20 08:00 | NUR ---
received pt. in am,no acute distress,vs stable.scant urinary drainage.
[2020-12-20 08:12] VITALS: BP 131/74
[2020-12-20] MEDS: HYDROCODONE/APAP 5/325MG TABLET PO PRN ×2 (08:51→14:50)
--- NOTE | 2020-12-20 08:51 | NUR ---
given norco abd. pain.
[2020-12-20] MEDS: FERROUS SULFATE (325 MG) 325 MG/TAB TABLET PO SCH (10:43)
[2020-12-20] MEDS: FINASTERIDE (5 MG) 5 MG TABLET PO SCH (10:43)
[2020-12-20] MEDS: CYCLOBENZAPRINE 10 MG TABLET PO SCH ×3 (10:43→18:46)
[2020-12-20] MEDS: CEFTRIAXONE 1 G in IV D5W 50 ML IV SCH (11:01)
--- NOTE | 2020-12-20 11:30 | NUR ---
michelle mishra picc line rn here and placed amaris cath for dialysis.
--- NOTE | 2020-12-20 14:50 | NUR ---
med. with julian for abd. pain.
--- NOTE | 2020-12-20 15:00 | NUR ---
in to visit.
--- NOTE | 2020-12-20 15:00 | NUR ---
abd.distended,pt. appears uncomfortable.iv infusing.manual flushing of f/c.little return of urine,mostly irrig. best'n.
--- NOTE | 2020-12-20 15:15 | NUR ---
obtained amts.of 999ml and 511ml on bladder scanner.
--- NOTE | 2020-12-20 15:20 | NUR ---
contacted dr. rdz regarding possible clogging of pena.states he will be in awre pt. wants to place catheter.
--- NOTE | 2020-12-20 16:10 | NUR ---
dr. rdz here and inserted #18 coude catheter without difficulty.immediate drainage of clear yasir colored urine 2450 ml.abdomen softer.pt. expressed relief.
[2020-12-20 16:11] VITALS: BP 137/68
[2020-12-20] MEDS: CALCIUM ACETATE 667 MG TABLET PO SCH (18:46)
--- NOTE | 2020-12-20 18:50 | NUR ---
athletic training internship here and unable to proceed with dialysis,michelle mishra called again to check on amaris cath.
--- NOTE | 2020-12-20 19:15 | NUR ---
urine drainage still yasir colored and lrg. in quantity.iv infusing.
[2020-12-20 19:38] LABS: BASOPHILS % (AUTO) 0.3 % (0.0-2.0); HEMATOCRIT 34 % (39-51); HEMOGLOBIN 11.5 g/dL (13.5-17.5); LYMPHOCYTES # (AUTO) 0.6 /CMM (0.8-4.8); LYMPHOCYTES % (AUTO) 5.8 % (20.0-44.0); MEAN CORPUSCULAR HGB CONC 34 g/dl (31.0-36.0); MEAN CORPUSCULAR VOLUME 85 fL (80-96); MONOCYTES # (AUTO) 1.2 /CMM (0.1-1.30); MONOCYTES % (AUTO) 12.9 % (2.0-12.0); NEUTROPHILS # (AUTO) 7.4 /CMM (1.8-8.9); PLATELET COUNT (AUTO) 135 /CMM (150-450); WHITE BLOOD COUNT (AUTO) 9.5 K/uL (4.3-11.0)
[2020-12-20 20:00] VITALS: BP 140/93
--- NOTE | 2020-12-20 20:00 | NUR ---
MS RN OPENING NOTES Patient is awake, A&Ox4. No signs of distress. Denies pain, denies SOB. Ambulation is steady. dialysis nurse states Jordan cath is not working/unable to use. TRADER FIXED INCOME Cosmo called by AM nurse to reinsert Jordan cath or fix. Will follow up. Roger patent and draining pink colored urine (hematuria present). IVF infusing and R wrist IV patent. Edema noted to BUE and BLE. Will monitor.
[2020-12-20] MEDS: AMPICILLIN SODIUM 2 GM in IV NS 0.9% 100 ML IV SCH (21:03)
[2020-12-20] MEDS: TAMSULOSIN 0.4 MG CAP.SR.24H PO SCH (21:03)
--- NOTE | 2020-12-20 21:53 | NUR ---
MS RN NOTES Per Cosmo, he could not establish access with Jordan catheter for temporary dialysis access. Patient refused IJ at this time. Cannery Tender Engineer Glory contacted about situation. stated that we can wait til scheduled Permacath procedure on Tuesday. If in AM on Tuesday labs are drawn and K+ or another vital lab is critical then situation will be reassessed.
[2020-12-21] MEDS: SODIUM BICARBONATE IV SCH ×3 (03:34→18:54)
[2020-12-21] MEDS: NACL IV SCH ×3 (03:34→18:54)
[2020-12-21] MEDS: D5 IV SCH ×3 (03:34→18:54)
--- NOTE | 2020-12-21 06:29 | NUR ---
MS RN CLOSING NOTES Patient is A&Ox4. VSS. Denies pain, SOB, or distress. only mild fatigue and sleepiness. No overnight events. Hematuria still present, urine output 3900 overnight to pena catheter.
--- NOTE | 2020-12-21 08:14 | NUR ---
MS/RN OPENING NOTE RECEIVED PATIENT IN BED AWAKE, A/O X 4, IN NO S/SX OF ACUTE DISTRESS AT THIS TIME. ON ROOM AIR. PATIENT AMBULATORY, GAIT STEADY. IV ACCESS ON RIGHT WRIST #20G IS INTACT AND PATENT WITH A RUNNING D5 1/2 NS WITH SODIUM BICARB AT 125 CC/HR. KENYON CATHETER IN PLACED AND DRAINING INTO A PINK TINGED URINE. PREVIOUS PM NURSE REPORTED A URINE OUTPUT OF [id number]. SAFETY MEASURES IMPLEMENTED. HEAD OF BED ELEVATED. BED IS LOCKED, IN LOWEST POSITION AND SIDE RAILS UP X2. CALL LIGHT WITHIN REACH OF THE PATIENT. WILL CONTINUE TO MONITOR.
[2020-12-21 08:39] VITALS: BP 132/66
[2020-12-21] MEDS: FINASTERIDE (5 MG) 5 MG TABLET PO SCH (09:21)
[2020-12-21] MEDS: FERROUS SULFATE (325 MG) 325 MG/TAB TABLET PO SCH (09:21)
[2020-12-21] MEDS: CALCIUM ACETATE 667 MG TABLET PO SCH ×3 (09:22→17:48)
[2020-12-21] MEDS: CYCLOBENZAPRINE 10 MG TABLET PO SCH ×3 (09:22→17:48)
[2020-12-21] MEDS: AMPICILLIN SODIUM 2 GM in IV NS 0.9% 100 ML IV SCH ×2 (10:13→20:15)
[2020-12-21 15:34] LABS: BASOPHILS % (AUTO) 0.2 % (0.0-2.0); HEMATOCRIT 40 % (39-51); HEMOGLOBIN 13.2 g/dL (13.5-17.5); LYMPHOCYTES # (AUTO) 0.9 /CMM (0.8-4.8); LYMPHOCYTES % (AUTO) 8.6 % (20.0-44.0); MEAN CORPUSCULAR HGB CONC 33 g/dl (31.0-36.0); MEAN CORPUSCULAR VOLUME 86 fL (80-96); MONOCYTES # (AUTO) 1.4 /CMM (0.1-1.30); MONOCYTES % (AUTO) 13.4 % (2.0-12.0); NEUTROPHILS # (AUTO) 7.9 /CMM (1.8-8.9); NEUTROPHILS % (AUTO) 75.8 % (43.0-81.0); PLATELET COUNT (AUTO) 148 /CMM (150-450); RED BLOOD CELL COUNT(AUTO) 4.67 MIL/uL (4.5-6.0); WHITE BLOOD COUNT (AUTO) 10.4 K/uL (4.3-11.0)
[2020-12-21 15:39] LABS: CALCIUM, SERUM 8.6 mg/dL (8.5-10.1); CARBON DIOXIDE 28 mmol/L (21-32); CHLORIDE 101 mmol/L (98-107); GLUCOSE 119 mg/dL (74-106); POTASSIUM 3.9 mmol/L (3.5-5.1); SODIUM SERUM 141 mmol/L (136-145)
[2020-12-21 15:42] LABS: CREATININE 8.3 mg/dL (0.6-1.3); UREA NITROGEN, BLOOD 106 mg/dL (7-18)
[2020-12-21 15:45] LABS: BILIRUBIN,DIRECT 0.2 mg/dL (0.0-0.2); BILIRUBIN,TOTAL 0.7 mg/dL (0.2-1.0)
[2020-12-21 15:46] LABS: ALANINE AMINOTRANSFERASE 46 U/L (12-78); ALBUMIN 2.5 g/dL (3.4-5.0); ALKALINE PHOSPHATASE 129 U/L (46-116); ASPARTATE AMINOTRANSFERASE 28 U/L (15-37); TOTAL PROTEIN, SERUM 6.7 g/dL (6.4-8.2)
[2020-12-21 16:18] VITALS: BP 116/54
[2020-12-21] MEDS: HYDROCODONE/APAP 5/325MG TABLET PO PRN (16:36)
[2020-12-21] MEDS: MORPHINE SULFATE INJ 2 MG/ML DISP.SYRIN IV PRN (18:49)
--- NOTE | 2020-12-21 19:40 | NUR ---
MS/RN CLOSING NOTE PATIENT IN BED AWAKE, A/O X 4, IN NO S/SX OF ACUTE DISTRESS AT THIS TIME. ON ROOM AIR. PATIENT AMBULATORY, GAIT STEADY. IV ACCESS ON RIGHT WRIST #20G IS INTACT AND PATENT WITH A RUNNING D5 1/2 NS WITH SODIUM BICARB AT 125 CC/HR. KENYON CATHETER IN PLACED AND DRAINING INTO A PINK TINGED URINE WITH TOTAL URINE OUTPUT OF 1800 CC. SAFETY MEASURES IMPLEMENTED. HEAD OF BED ELEVATED. BED IS LOCKED, IN LOWEST POSITION AND SIDE RAILS UP X2. CALL LIGHT WITHIN REACH OF THE PATIENT. WILL ENDORSE TO THE NEXT SHIFT FOR CONTINUITY OF CARE.
[2020-12-21 20:00] VITALS: BP 143/79
--- NOTE | 2020-12-21 20:00 | NUR ---
MS RN OPENING NOTES Patient is A&Ox4. No signs of distress, catheter patent and draining yellow, clear urine. C/o mild pain that is tolerable from catheter reinsertion. Denies SOB, or any distress at this time.Will continue to monitor.
[2020-12-21] MEDS: TAMSULOSIN 0.4 MG CAP.SR.24H PO SCH (22:55)
--- NOTE | 2020-12-22 00:43 | NUR ---
Per AM nurse received orders for dietary consult and Ensure Live TID. Orders entered.
--- NOTE | 2020-12-22 00:44 | NUR ---
Patient NPO after midnight d/t possible permacath insertion in OR in AM.
[2020-12-22] MEDS: D5 IV SCH (03:38)
[2020-12-22] MEDS: SODIUM BICARBONATE IV SCH (03:38)
[2020-12-22] MEDS: NACL IV SCH (03:38)
--- NOTE | 2020-12-22 05:17 | NUR ---
MS RN NOTES Obtained MD order for midline insertion today. Multiple nurses attempt IV insertion -unsuccessful x5. MD aware pt is on Sodium bicarb in fluids and 0900 ABT. Later today to have permacath insertion then to be dialyzed after.
[2020-12-22 06:31] LABS: BASOPHILS % (AUTO) 0.4 % (0.0-2.0); EOSINOPHILS % (AUTO) 2.6 % (0.0-6.0); HEMATOCRIT 36 % (39-51); LYMPHOCYTES # (AUTO) 1.1 /CMM (0.8-4.8); LYMPHOCYTES % (AUTO) 13.3 % (20.0-44.0); MEAN CORPUSCULAR HGB CONC 33 g/dl (31.0-36.0); MEAN CORPUSCULAR VOLUME 85 fL (80-96); MONOCYTES # (AUTO) 1.1 /CMM (0.1-1.30); MONOCYTES % (AUTO) 13.3 % (2.0-12.0); NEUTROPHILS # (AUTO) 5.7 /CMM (1.8-8.9); NEUTROPHILS % (AUTO) 70.4 % (43.0-81.0); PLATELET COUNT (AUTO) 139 /CMM (150-450); RED BLOOD CELL COUNT(AUTO) 4.23 MIL/uL (4.5-6.0)
[2020-12-22 07:11] LABS: CALCIUM, SERUM 8.7 mg/dL (8.5-10.1); CARBON DIOXIDE 31 mmol/L (21-32); CHLORIDE 103 mmol/L (98-107); CREATININE 6.4 mg/dL (0.6-1.3); GLUCOSE 106 mg/dL (74-106); PHOSPHORUS 4.4 mg/dL (2.5-4.9); POTASSIUM 3.8 mmol/L (3.5-5.1); SODIUM SERUM 143 mmol/L (136-145)
[2020-12-22 07:14] LABS: UREA NITROGEN, BLOOD 91 mg/dL (7-18)
--- NOTE | 2020-12-22 07:19 | NUR ---
Patient is A&Ox4. VSS. 750cc output overnight. slight hematuria. Irrigated catheter at 0600 fluid went in but not back out -patient states he felt it go into his bladder. This nurse asked patient if it was okay to try and adjust his catheter patient states "it has been messed with so many times, it is too painful, let me sleep for an hour then maybe we can try again." Endorsed to next nurse. If no output to notify urology.
[2020-12-22] MEDS: HYDROCODONE/APAP 5/325MG TABLET PO PRN (08:11)
[2020-12-22 08:50] VITALS: BP 128/100
[2020-12-22] MEDS: CYCLOBENZAPRINE 10 MG TABLET PO SCH ×3 (09:30→16:32)
[2020-12-22] MEDS: FINASTERIDE (5 MG) 5 MG TABLET PO SCH (09:30)
[2020-12-22] MEDS: CALCIUM ACETATE 667 MG TABLET PO SCH ×3 (09:31→18:04)
[2020-12-22] MEDS: FERROUS SULFATE (325 MG) 325 MG/TAB TABLET PO SCH (09:31)
[2020-12-22] MEDS ORDERED: IV NS 0.9% 1,000 ML IV ONE (12:00)
[2020-12-22] MEDS: AMPICILLIN SODIUM 2 GM in IV NS 0.9% 100 ML IV SCH ×2 (13:38→21:10)
[2020-12-22 16:29] VITALS: BP 139/66
--- NOTE | 2020-12-22 19:28 | NUR ---
MSRN DR WOOD VERBALIZED TO DC BICARBONATE INFUSION
--- NOTE | 2020-12-22 19:30 | NUR ---
RN OPENING NOTE PATIENT IN BED SLEEPING, EASILY AROUSED. PATIENT'S BREATHING EVEN AND UNLABORED. ABLE TO MAKE NEEDS KNOWN, A/O X 4. PATIENT DOES NOT SEEM TO BE IN ANY APPARENT DISTRESS.BREATHING EVEN AND UNLABORED, TOLERATES ROOM AIR AT 98% O2 SATURATION. RONNELL MIDLINE PATENT AND INTACT, IV FLUIDS RUNNING WELL. PATIENT DOES NOT COMPLAIN OF PAIN AT THIS TIME. SAFETY MEASURES IN PLACE: CALL LIGHT WITHIN REACH, BED IN LOCKED AND LOWEST POSITION, SIDE RAILS UP. ENCOURAGED PATIENT TO CALL WHEN IN NEED. WILL MONITOR PATIENT CLOSELY.
[2020-12-22 20:00] VITALS: BP 140/74
[2020-12-22] MEDS: TAMSULOSIN 0.4 MG CAP.SR.24H PO SCH (21:10)
[2020-12-22] MEDS: MORPHINE SULFATE INJ 2 MG/ML DISP.SYRIN IV PRN (22:37)
--- NOTE | 2020-12-22 22:42 | NUR ---
PATIENT GIVEN MORPHINE 2 MG/1MG FOR FLANK PAIN OF 9/10 ON THE PAIN SCALE. OF 0-10. WILL RE-ASSESS.
[2020-12-23] MEDS: HYDROCODONE/APAP 5/325MG TABLET PO PRN (00:43)
--- NOTE | 2020-12-23 00:46 | NUR ---
PATIENT COMPLAINS OF INCREASED PAIN, 7/10 FLANK PAIN. NORCO 5/325 GIVEN. WILL REASSESS.
[2020-12-23] MEDS: IV NS 0.9% 1,000 ML IV PRN ×2 (02:32→07:01)
--- NOTE | 2020-12-23 03:18 | NUR ---
RN NOTE PATIENT ONLY HAS 70 ML OUTPUT SINCE SHIFT STARTED, HAND IRRIGATED KENYON CATHETER, INITIALLY ABLE TO FLUSH 60 CC OF STERILE WATER, HOWEVER, IT DID NOT DRAIN. ALYSON, CHARGE NURSE, TRIED TO ADVANCE CATHETER A LITTLE BIT MORE AND FLUSH BUT PATIENT STATES THAT IT IS PAINFUL. STATES "I'M REALLY TIRED, CAN WE JUST DO THIS IN THE MORNING". WILL ASK PATIENT AGAIN AT A LATER TIME TO FIX KENYON.
[2020-12-23] MEDS ORDERED: LIDOCAINE 2% JEL UROJET 10 ML MM ONE ×2 (06:03→06:30)
[2020-12-23 06:33] LABS: BASOPHILS % (AUTO) 0.3 % (0.0-2.0); EOSINOPHILS % (AUTO) 3.4 % (0.0-6.0); HEMATOCRIT 37 % (39-51); LYMPHOCYTES # (AUTO) 1.2 /CMM (0.8-4.8); LYMPHOCYTES % (AUTO) 15.2 % (20.0-44.0); MEAN CORPUSCULAR HGB CONC 33 g/dl (31.0-36.0); MEAN CORPUSCULAR VOLUME 86 fL (80-96); MONOCYTES # (AUTO) 0.8 /CMM (0.1-1.30); MONOCYTES % (AUTO) 10.1 % (2.0-12.0); NEUTROPHILS # (AUTO) 5.5 /CMM (1.8-8.9); PLATELET COUNT (AUTO) 155 /CMM (150-450); RED BLOOD CELL COUNT(AUTO) 4.23 MIL/uL (4.5-6.0); WHITE BLOOD COUNT (AUTO) 7.7 K/uL (4.3-11.0)
[2020-12-23 07:12] LABS: CALCIUM, SERUM 8.3 mg/dL (8.5-10.1); CARBON DIOXIDE 27 mmol/L (21-32); CHLORIDE 105 mmol/L (98-107); CREATININE 5.2 mg/dL (0.6-1.3); GLUCOSE 100 mg/dL (74-106); MAGNESIUM 1.9 mg/dL (1.8-2.4); PHOSPHORUS 3.7 mg/dL (2.5-4.9); POTASSIUM 3.8 mmol/L (3.5-5.1); SODIUM SERUM 143 mmol/L (136-145)
[2020-12-23 07:17] LABS: UREA NITROGEN, BLOOD 80 mg/dL (7-18)
--- NOTE | 2020-12-23 07:30 | NUR ---
RN CLOSING NOTE ICU NURSE WALESKA INSERTED [address] KENYON CATHETER AT 0630, DRAINED 1750 ML URINE SO FAR OF CLEAR LIGHT YELLOW URINE. USED LIDOCAINE UROJET FOR KENYON INSERTION TO NUMB INSERTION SITE PATIENT WAS FEELING A LOT OF PAIN DURING PAST INSERTIONS. BREATHING EVEN AND UNLABORED, STILL TOLERATES ROOM AIR. SAFETY MEASURES MAINTAINED. ALL NEEDS MET AND ATTENDED, IV FLUIDS INFUSING WELL. ENDORSED TO DAY SHIFT NURSE FOR WHIT.
[2020-12-23 08:00] VITALS: BP 159/86
[2020-12-23] MEDS: CALCIUM ACETATE 667 MG TABLET PO SCH ×3 (08:20→17:19)
[2020-12-23] MEDS: FERROUS SULFATE (325 MG) 325 MG/TAB TABLET PO SCH (08:20)
[2020-12-23] MEDS: CYCLOBENZAPRINE 10 MG TABLET PO SCH ×3 (08:20→17:19)
[2020-12-23] MEDS: FINASTERIDE (5 MG) 5 MG TABLET PO SCH (08:20)
[2020-12-23] MEDS: AMPICILLIN SODIUM 2 GM in IV NS 0.9% 100 ML IV SCH ×2 (08:25→21:09)
[2020-12-23 16:00] VITALS: BP 148/79
--- NOTE | 2020-12-23 19:36 | NUR ---
MS RN OPENING PATIENT IN BED. A/OX4. SEEMS UPSET, ASKING FOR PEN/PENCIL. NO S/S OF APPARENT DISTRESS. NO C/O PAIN AT THE MOMENT. RIGHT UPPER ARM MIDLINE RUNNING NS @150 ML/HR. PATIENT AMBULATES WITHOUT ASSIST. KENYON NOTED, DRAINING CLEAR, YELLOW URINE. +1 BLE NOTED. SAFETY IN PLACE: BED IN LOWEST, LOCKED POSITION; CALL LIGHT WITHIN REACH. WILL CONTINUE TO MONITOR.
[2020-12-23 20:07] VITALS: BP 150/78
[2020-12-23] MEDS: TAMSULOSIN 0.4 MG CAP.SR.24H PO SCH (21:09)
[2020-12-23] MEDS: ZOLPIDEM TARTRATE 5 MG TABLET PO PRN (21:09)
--- NOTE | 2020-12-23 21:10 | NUR ---
MS RN NOTES PATIENT ASKED FOR SLEEPING MED. GIVEN PATRICIA CARDOSON.
--- NOTE | 2020-12-24 06:49 | NUR ---
MS RN CLOSING 310 PATIENT IN BED WITH EYES CLOSED EASY TO AROUSE. A/OX4. ABLE TO MAKE NEEDS KNOWN. NO S/S OF APPARENT DISTRESS. NO C/O PAIN. KENYON CATH DRAINING CLEAR, YELLOW URINE. AMBULATES WITHOUT ASSIST. BLE +[address] THE WHOLE SHIFT: BED IN LOWEST, LOCKED POSITION, CALL LIGHT WITHIN REACH. NO SIGNIFICANT CHANGE SINCE LAST SHIFT. WILL ENDORSE CARE TO AM RN.
[2020-12-24 06:53] LABS: CALCIUM, SERUM 8.4 mg/dL (8.5-10.1); CARBON DIOXIDE 29 mmol/L (21-32); CHLORIDE 108 mmol/L (98-107); CREATININE 3.1 mg/dL (0.6-1.3); GLUCOSE 109 mg/dL (74-106); POTASSIUM 3.6 mmol/L (3.5-5.1); SODIUM SERUM 144 mmol/L (136-145); UREA NITROGEN, BLOOD 55 mg/dL (7-18)
--- NOTE | 2020-12-24 07:21 | NUR ---
MS RN OPENING NOTES PATIENT RECEIVED AWAKE IN BED IN NO ACUTE SIGNS OF DISTRESS. A/O X4. ABLE TO MAKE NEEDS KNOWN, DENIES PAIN OR ANY DISCOMFORTS AT THIS TIME. ON ROOM AIR, BREATHING EVEN AND UNLABORED. RONNELL MIDLINE PATENT AND INTACT. SAFETY MEASURES IN PLACE: CALL LIGHT WITHIN REACH, BED IN LOCKED AND LOWEST POSITION, SIDE RAILS UP X2. ENCOURAGED PATIENT TO CALL WHEN FOR ASSISTANCE. WILL MONITOR PATIENT ACCORDINGLY.
[2020-12-24 08:00] VITALS: BP 161/57
[2020-12-24] MEDS: CALCIUM ACETATE 667 MG TABLET PO SCH ×3 (08:22→17:01)
[2020-12-24] MEDS: FERROUS SULFATE (325 MG) 325 MG/TAB TABLET PO SCH (08:22)
[2020-12-24] MEDS: CYCLOBENZAPRINE 10 MG TABLET PO SCH ×3 (08:22→16:55)
[2020-12-24] MEDS: FINASTERIDE (5 MG) 5 MG TABLET PO SCH (08:22)
[2020-12-24] MEDS: AMPICILLIN SODIUM 2 GM in IV NS 0.9% 100 ML IV SCH ×2 (08:59→21:32)
--- NOTE | 2020-12-24 10:22 | NUR ---
RN NOTES EVALUATED BY OCCUPATIONAL THERAPIST, PT IS INDEPENDENT.
[2020-12-24] MEDS: IV NS 0.9% 1,000 ML IV PRN (13:15)
--- NOTE | 2020-12-24 13:43 | NUR ---
RN NOTES PT FOR PSYCH CONSULT. SEEN AND EVALUATED BY DR BEAULIEU, NO NEW ORDER MADE. WILL CONTINUE TO MONITOR PT.
[2020-12-24 16:00] VITALS: BP 127/80
--- NOTE | 2020-12-24 18:54 | NUR ---
MS RN CLOSING NOTES PATIENT RESTING IN BED AND WATCHING TV AT THIS TIME. A/O X4. ABLE TO MAKE NEEDS KNOWN. ON ROOM AIR, BREATHING EVEN AND UNLABORED, NO SOB NOTED DURING THE DAY. RONNELL MIDLINE PATENT AND INTACT WITH IVF OF NS @ 100ML/HR INFUSING WELL, NO S/S OF INFILTRATIONS AT SITE NOTED. KENYON IN PLACE AND ACTIVELY DRAINING CLEAR ILIR COLORED URINE TO BEDSIDE DRAINAGE BAG, KENYON CARE DONE. SAFETY MEASURES IN PLACE: CALL LIGHT WITHIN REACH, BED IN LOCKED AND LOWEST POSITION, SIDE RAILS UP X2. CALL LIGHT AND BEDSIDE TABLE W/IN EASY REACH OF PT. ALL NEEDS AND CARE ATTENDED WELL. WILL ENDORSE WHIT TO RAT CULTURIST NURSE.
--- NOTE | 2020-12-24 19:00 | NUR ---
received alert and orientated x4 smilim ng and in good spirits joking and conversing easily with me ambulating in the room pena drainage clear yellow denies pain
[2020-12-24 20:00] VITALS: BP 153/84
[2020-12-24] MEDS: TAMSULOSIN 0.4 MG CAP.SR.24H PO SCH (21:32)
[2020-12-25] MEDS: IV NS 0.9% 1,000 ML IV PRN (02:21)
--- NOTE | 2020-12-25 04:28 | NUR ---
Closing notes: went to sleep around 2300. slept thru the night changing his position from side to side . pena drainage clear yellow. IV infusing as ordered w/o problems. no indication of pain. quiet uneventful night.
--- NOTE | 2020-12-25 07:17 | NUR ---
MS RN OPENING NOTES RECEIVED PT AWAKE IN BED. A/O X4. ABLE TO MAKE NEEDS KNOWN, DENIES PAIN OR ANY DISCOMFORTS AT THIS TIME. ON ROOM AIR, TOLERATING WELL, BREATHING EVEN AND UNLABORED. RONNELL MIDLINE PATENT AND INTACT WITH IVF OF NS @100ML/HR INFUSING WELL. SAFETY MEASURES IN PLACE: CALL LIGHT WITHIN REACH, BED LOCKED AND LOWEST POSITION, SIDE RAILS UP X2. WILL MONITOR PATIENT ACCORDINGLY.
[2020-12-25 08:00] VITALS: BP 124/88
[2020-12-25] MEDS: CALCIUM ACETATE 667 MG TABLET PO SCH ×2 (08:09→12:43)
[2020-12-25] MEDS: FERROUS SULFATE (325 MG) 325 MG/TAB TABLET PO SCH (08:09)
[2020-12-25] MEDS: CYCLOBENZAPRINE 10 MG TABLET PO SCH ×3 (08:10→16:12)
[2020-12-25] MEDS: FINASTERIDE (5 MG) 5 MG TABLET PO SCH (08:10)
[2020-12-25] MEDS: AMPICILLIN SODIUM 2 GM in IV NS 0.9% 100 ML IV SCH (08:10)
[2020-12-25 16:00] VITALS: BP 152/92
[2020-12-25] MEDS ORDERED: IV NS 0.9% 1,000 ML IV PRN (16:30)
[2020-12-25] MEDS ORDERED: hydrALAZINE HCL IV 20 MG VIAL IV ONE (16:45)
[2020-12-25 16:47] VITALS: BP 163/88
--- NOTE | 2020-12-25 16:52 | NUR ---
RN NOTES PARAMEDICS CAME TO PICK-UP PT FOR TRANSFER TO [facility] BUT BP WAS 163/88, P 103. CALLED [facility] IF THEY WILL ACCEPT PT AND [employer] COORDINATOR CONSULTED THEIR DON AND THAT PT NEEDS HIS BLOOD PRESSURE TO GO DOWN FIRST. MICHAEL BACK MADE AWARE WITH ORDER TO GIVE HYDRALAZINE 10 MG IV AND WAS ADMINISTERED. WILL MONITOR BP LATER.
--- NOTE | 2020-12-25 17:50 | NUR ---
MS [place]UE CLOSING NOTES PATIENT DISCHARGED TO [facility] IN STABLE CONDITION. LATEST BP WAS 149/75, HR 90. REPORT GIVEN EARLIER VIA TELEPHONE TO ROWAN VALDIVIA. PT IS A/O X4. ABLE TO MAKE NEEDS KNOWN. AMBULATORY. ON ROOM AIR, BREATHING EVEN AND UNLABORED, NO SOB NOTED. NO SKIN ISSUES NOTED. RONNELL MIDLINE KEPT IN PLACE, PT WILL CONTINUE IV ANTIBIOTIC AT [facility]. KENYON NOT REMOVED PER MD ORDER, CLEAR ILIR URINE OUTPUT NOTED. HEALTH TEACHINGS GIVEN TO PT AND VERBALIZED UNDERSTANDING. PT LEFT UNIT AT 1720 VIA GURNEY ACCOMPANIED BY 2 EMERGENCY DISPATCHER. BP MD AND CHARGE NURSE AWARE OF DISCHARGE Addendum: 12/25/20 at 1758 by JULIA ARRIETA RN CORRECTION: THIS NOTES IS RN DISCHARGED NOTED
== END 2020-12-25 17:40 | DRG 725 ==
LOC: ER 08:40 → TELE 14:20 → MED 12-14 15:00
PROVIDERS: ADMIT Nurse Practitioner Acute Care; ATTEND Nurse Practitioner Acute Care
PROC: 05H533Z Insertion of Infusion Device into Right Subclavian Vein, Percutaneous Approach (ICD-10-PCS; principal; 2020-12-22)
PROC: B546ZZA Ultrasonography of Right Subclavian Vein, Guidance (ICD-10-PCS; 2020-12-22)
DX: N40.1 Benign prostatic hyperplasia with lower urinary tract symptoms (principal); N17.0 Acute kidney failure with tubular necrosis; E87.2 Acidosis; R78.81 Bacteremia; E44.1 Mild protein-calorie malnutrition; N13.6 Pyonephrosis; N13.8 Other obstructive and reflux uropathy; K57.30 Diverticulosis of large intestine without perforation or abscess without bleeding; N28.1 Cyst of kidney, acquired; B95.2 Enterococcus as the cause of diseases classified elsewhere; D64.9 Anemia, unspecified; E66.9 Obesity, unspecified; E87.5 Hyperkalemia; I25.10 Atherosclerotic heart disease of native coronary artery without angina pectoris; M62.50 Muscle wasting and atrophy, not elsewhere classified, unspecified site; E88.09 Other disorders of plasma-protein metabolism, not elsewhere classified; K76.89 Other specified diseases of liver; Z20.822 Contact with and (suspected) exposure to COVID-19; R74.8 Abnormal levels of other serum enzymes; R31.9 Hematuria, unspecified; N39.498 Other specified urinary incontinence; Z68.30 Body mass index [BMI] 30.0-30.9, adult; F39 Unspecified mood [affective] disorder; N18.9 Chronic kidney disease, unspecified
CPT/HCPCS: 36410; 36415; 71045-TC; 71046; 71250-TC; 74018; 76705-TC; 76770-TC; 80048-TC; 80061-TC; 80076-TC; 80202-TC; 81001; 82150-TC; 82550-TC; 82553; 82728-TC; 82784; 83540-TC; 83605-TC; 83690-TC; 83735-TC; 84100-TC; 84153-TC; 84154-TC; 84155; 84165; 84484-TC; 85025-TC; 85730-TC; 86334; 86480; 86704; 86705; 86706; 86803; 87040-TC; 87081-TC; 87086-TC; 87186-TC; 87340; 97112-TC; 97116-TC; 97530-TC; A4217; A6403; C1750; C9803; G0378; J0290; J0360; J0696; J2270; J2405; J3370; J3490; J7030; J7050; J7060; Q9967

== ENCOUNTER 2021-02-08 17:54 | Emergency (ER) | payer MEDICARE, OTHER ==
[~2021-02-08] VITALS: Ht 190.5 cm; Wt 106.6 kg
--- NOTE | 2021-02-08 17:56 | NUR ---
PT TO ED C/O BLADDER PAIN FROM A CLOGGED KENYON CATHETER. PT STATES BEEN RETAINING SINCE 6AM. PT STATES HIS HOME NURSE RAN OUT OF F/C KIT. PT DENIES ANY OTHER COMPLAINT. GOWNED. AWAITING MD SANTOS.
[2021-02-08] MEDS ORDERED: LIDOCAINE 2% JEL UROJET 10 ML MM ONE ×2 (18:05→18:30)
--- NOTE | 2021-02-08 19:03 | NUR ---
Pt is discharge w/ F/c catheter and will follow up with urulogist. Patient discharged to home in stable condition. Written and verbal after care instructions given. Patient verbalizes understanding of instruction.
[2021-02-08 19:05] VITALS: BP 136/84
== END 2021-02-08 19:05 | disposition home or self-care (01) ==
LOC: ER 17:54
DX: R33.9 Retention of urine, unspecified (principal)
CPT/HCPCS: 51702; 99284; J3490